=== PATIENT | female | born 1980 | race Caucasian/White ===

== ENCOUNTER 2019-11-14 09:31 | Observation (INO) ==
[2019-11-14] MEDS ORDERED: IOPAMIDOL 100 ML BOTTLE IV ONE (09:32)
[2019-11-14] MEDS ORDERED: ONDANSETRON 4 MG/2 ML VIAL IV ONE ×2 (09:55→16:00)
--- NOTE | 2019-11-14 10:00 | Emergency Department Note ---
Abdominal Pain HPI - General Chief Complaint: Abdominal Pain Stated Complaint: RLQ Abd Pain Time Seen by Provider: 11/14/19 09:48 Source: patient Mode of arrival: ambulatory Limitations: no limitations - History of Present Illness HPI Narrative: Reason for visit: Patient is a 39-year-old female that arrives complaining of right abdominal pain. She reports this pain at 8/10 sharp right upper quadrant radiates to her back and lower abdomen. Report pains increased with movement. She states that this at 11:30 PM. Denies diarrhea, constipation changes in urinary pattern. Reports she still has her gallbladder and appendix. She reports 1 episode of vomiting last night. Reports current nausea. Denies recent weakness, shortness of breath, palpations or chest pain. Patient denies currently being . Reports that her last period was last month sometime. Reports that her mother had her gallbladder removed. Reports her last food intake was at 1930 last night. - Related Data Home Medications Medication Instructions Recorded Confirmed multivitamin 1 tab PO BID tab 09/11/19 11/14/19 Allergies Allergy/AdvReac Type Severity Reaction Status Date / Time pseudoephedrine Allergy Severe anaphylaxis Verified 10/05/19 10:36 [From [facility]] Review of Systems Constitutional: Denies: fever, chills, weakness ENT ED: Denies: dysphagia Cardiovascular: Denies: chest pain, palpitations Respiratory: Denies: shortness of breath, cough Gastrointestinal: Reports: abdominal pain, nausea. Denies: vomiting (No vomiting today.), diarrhea, constipation Genitourinary: Denies: dysuria, urgency Musculoskeletal: Denies: back pain, joint pain Integumentary: Denies: rash, lesions Neurological: Denies: headache, weakness Endocrine: Denies: fatigue Hematological/Lymphatic: Denies: easy bleeding, easy bruising, lymphadenopathy Abdominal Pain PMH - Social History Smoking status: Never smoker Physical Exam Limitations: no limitations General appearance: alert Head: atraumatic, normocephalic, normal inspection Eye: Present: normal appearance, PERRL ENT: Present: normal exam, normal oropharynx Neck: Present: normal inspection, full ROM, trachea midline. Absent: tenderness, lymphadenopathy Chest: Present: normal inspection, symmetric chest wall rise Respiratory: Present: normal lung sounds bilaterally. Absent: respiratory distress Cardiovascular: Present: regular rate, normal rhythm Abdominal: Present: soft, tenderness, guarding, normal bowel sounds, Bhandari's sign. Absent: distention, rebound, rigidity, psoas sign, Rovsing's sign, tenderness at McBurney's Point Abdominal tenderness: Present: RUQ Extremities: Present: normal inspection, full ROM Back: Present: normal inspection. Absent: CVA tenderness (R), CVA tenderness (L) Neurological: Present: alert, oriented X3, CN II-XII intact Psychiatric: Present: normal affect, normal mood Skin: Present: warm, dry, intact Course Course Narrative: Differential diagnosis: Cholecystitis, Cholelithiasis, acute appendicitis, gastritis. The patient's positive Bhandari sign and presentation of acute onset initial work- up will have suspicion of gallbladder. Will order a CMP and a CBC to check for electrolyte and infection. Order lipase check for gallbladder enzymes. Patient's pain is at 8/10 with nausea. Will treat pain and nausePatient as said before has positive Bhandari sign. She also has first-generation history of her mother having her gallbladder removed. Will order a ultrasound of the gallb ladder. I evaluated patient after she has seen pain medication and had a gallbladder ultrasound. This study was negative for gall bladder disease. On reassessment found that patient's pain is now specific to McBurney's point. Eats that after pain medication her pain is no longer significant her right upper quad. Reports her pain in the right lower quadrant. She does have negative rebound te nderness. But she does have a white count. This may lead to a return of a CT to investigate the possibility of appendicitis. The result of the CT reports simple appendicitis. Dr. Chicas the surgeon has been called and states he will see the patient. Vital Signs Temperature 97.9 F 11/14/19 09:32 Pulse Rate 72 11/14/19 09:32 Respiratory Rate 18 11/14/19 09:32 Blood Pressure 125/84 11/14/19 09:32 Pulse Oximetry (%) 100 11/14/19 09:32 Temperature 97.9 F 11/14/19 09:32 Pulse Rate 63 11/14/19 12:50 Respiratory Rate 18 11/14/19 12:50 Blood Pressure 119/64 11/14/19 12:50 Pulse Oximetry (%) 96 11/14/19 12:50 Abdominal Pain - Lab Data Result diagrams: 11/14/19 10:09 11/14/19 10:09 Lab Results 11/14/19 11/14/19 11/14/19 Range/Units 10: 10: 10:20 WBC 14.3 H (4.50-11.00) K/mcL RBC 4.26 (3.59-5.38) M/mcL Hgb 13.6 (11.2-15.7) g/dL Hct 39.0 (34.1-44.9) % MCV 91.5 (80.0-100.0) fL MCH 31.9 (26.0-34.0) pg MCHC 34.9 (31.0-36.0) g/dL RDW 12.4 (11.5-14.5) % Plt Count 388 (140-440) K/mcL MPV 9.0 (7.4-10.4) fL Gran % 77.3 (38.0-78.0) % Lymph % (Auto) 15.4 L (15.5-49.0) % [facility] % (Auto) 6.5 (1.0-12.0) % Eos % (Auto) 0.4 (0.0-7.0) % Baso % (Auto) 0.4 (0.0-2.0) % Gran # 11.04 H (1.80-8.00) K/mcL Lymph # (Auto) 2.19 (1.50-4.80) K/mcL [facility] # (Auto) 0.92 H (0.10-0.90) K/mcL Eos # (Auto) 0.05 (0.00-0.70) K/mcL Baso # (Auto) 0.05 (0.00-0.30) K/mcL Sodium 141 (133-145) mmol/L Potassium 3.9 (3.3-5.1) mmol/L Chloride 107 (96-108) mmol/L Carbon Dioxide 22 (22-30) mmol/L Anion Gap 12.0 (8-16) BUN 8 (6-20) mg/dl Creatinine 0.8 (0.6-1.1) mg/dl GFR Calculation 94 Glucose 101 (70-105) mg/dL Calcium 9.9 (8.6-10.4) mg/dl Total Bilirubin 0.4 (0.0-1.0) mg/dL AST 14 (0-37) U/l ALT 9 (0-40) U/l Alkaline Phosphatase 81 (39-117) U/L Total Protein 6.9 (5.9-8.4) gm/dL Albumin 3.9 (3.2-5.2) gm/dL Globulin 3.0 (2.2-3.7) gm/dL Albumin/Globulin Ratio 1.3 (1.0-2.3) Lipase 16 (7-60) U/L Urine Color Straw Urine Appearance Clear Urine pH 8.0 (5.0-9.0) Ur Specific [place] 1.011 (1.000-1.035) Urine Protein Neg (NEG) mg/dL Urine Glucose (UA) Negative (NEG) mg/dL Urine Ketones Neg (NEG) mg/dL Urine Occult Blood Neg (<0.03) mg/dL Urine Nitrate Neg (NEG) Urine Bilirubin Neg (NEG) mg/dL Urine Urobilinogen Neg (NEG) mg/dL Ur Leukocyte Esterase Neg (NEG) /uL Ur Culture Indicated? No Disposition Pt seen by CONDITIONING YARD SUPERVISOR/PA only: No Clinical Impression: Acute appendicitis, Abdominal pain Disposition: Xfer As Outpt/Obs ([facility]) Condition: Fair Referrals: Marii Ruiz DO [Primary Care Provider] - Time of Disposition: 13:00
[2019-11-14] MEDS: HYDROmorphone 2 MG/ML VIAL IV PRN ×4 (10:47→18:04)
[2019-11-14 10:53] LABS: Basophils # (Auto) 0.05 K/mcL (0.00-0.30); Basophils % (Auto) 0.4 % (0.0-2.0); Eosinophils # (Auto) 0.05 K/mcL (0.00-0.70); Eosinophils % (Auto) 0.4 % (0.0-7.0); Granulocytes % (Auto) 77.3 % (38.0-78.0); Hemoglobin 13.6 g/dL (11.2-15.7); Lymphocytes # (Auto) 2.19 K/mcL (1.50-4.80); Lymphocytes % (Auto) 15.4 % (15.5-49.0); Mean Cell Volume 91.5 fL (80.0-100.0); Mean Corpuscular HGB Conc 34.9 g/dL (31.0-36.0); Monocytes # (Auto) 0.92 K/mcL (0.10-0.90); Monocytes % (Auto) 6.5 % (1.0-12.0); Platelet Count 388 K/mcL (140-440); RBC 4.26 M/mcL (3.59-5.38); Red Cell Distribution Width 12.4 % (11.5-14.5); WBC 14.3 K/mcL (4.50-11.00)
[2019-11-14 11:20] LABS: Appearance,Urine CLEAR; Bilirubin,Urine NEG (NEG); Color,Urine STRAW; Culture Indicated,Urine NO; Glucose,Urine (UA) NEGATIVE (NEG); Ketones,Urine NEG (NEG); Leukocyte Esterase,Urine NEG /uL (NEG); Nitrate,Urine NEG (NEG); Protein,Urine NEG (NEG); Specific Gravity,Urine 1.011 (1.000-1.035); Urine Blood NEG mg/dL (<0.03); Urobilinogen,Urine NEG (NEG)
[2019-11-14 11:21] LABS: ALT/SGPT 9 U/l (0-40); AST/SGOT 14 U/l (0-37); Albumin 3.9 gm/dL (3.2-5.2); Albumin/Globulin Ratio 1.3 (1.0-2.3); Alkaline Phosphatase 81 U/L (39-117); Bilirubin,Total 0.4 mg/dL (0.0-1.0); Blood Urea Nitrogen 8 mg/dl (6-20); Calcium 9.9 mg/dl (8.6-10.4); Carbon Dioxide 22 mmol/L (22-30); Chloride 107 mmol/L (96-108); Glomerular Filtration Rate 94; Glucose 101 mg/dL (70-105)
--- NOTE | 2019-11-14 11:43 | Ultrasound Report ---
CLINICAL INFORMATION: Right upper quadrant pain TECHNIQUE: Grayscale and color flow Doppler spectral imaging COMPARISON: None. FINDINGS: Negative gallbladder. There is no cholelithiasis. No gallbladder wall thickening. No pericholecystic fluid. No dilated bile ducts. Common bile duct measures 4.6 mm Liver is echogenic and sonographically dense. Appearances consistent with hepatic steatosis. There is a focal echogenic abnormality in the right lobe of the liver. This measures 16 x 10 x 15 mm. Probably a benign hemangioma. Six-month follow-up ultrasound is recommended. This patient has a history of primary malignancy further evaluation should be performed at this time. Spleen is not evaluated. Normal hepatopedal portal venous flow Pancreas is poorly visualized IMPRESSION: 1. Negative gallbladder. No bile duct dilatation 2. Findings consistent with hepatic steatosis 3. Probable hepatic hemangioma. Follow-up recommended Interpreted and Authenticated by: Mateus Romo 11/14/19
--- NOTE | 2019-11-14 12:12 | Cat Scan Report ---
CLINICAL INFORMATION: Abdominal pain COMPARISON: Right upper quadrant ultrasound dated 11/14/2019 TECHNIQUE: Axial images were obtained through the abdomen and pelvis. Sagittally and coronally reformatted images. 80 mL Isovue 370 injected intravenously. Oral contrast material was not administered FINDINGS: Lung bases:Negative. No parenchymal infiltrate or mass Liver:9 mm low-density lesion in the right lobe of the liver, image 49. This is probably a small hemangioma and was identified on previous ultrasound. Liver is otherwise negative. Normal smooth liver contour. Gallbladder, billary:Negative. No calcified gallstones. No gallbladder wall thickening. No dilated bile ducts Spleen:No splenomegaly. Normal enhancement splenic and portal veins Pancreas:Negative. No pancreatic mass. No peripancreatic abnormality Adrenal glands:Negative Kidneys, ureters, bladder:Negative kidneys. No solid or cystic mass. There is no hydronephrosis. No hydroureter. Urinary bladder is within normal limits. No bladder calculi Gastrointestinal:Negative colon. No diverticulosis or diverticulitis. No detectable mass. The appendix is enlarged and measures 12 mm at its tip. There is mild appendiceal enhancement and periappendiceal inflammatory change. Findings are consistent with appendicitis. There is no evidence for ruptured appendix. There is no appendicolith. No periappendiceal abscess or fluid Vascular:The abdominal aorta is normal. No abdominal aortic aneurysm. Lymphatic:No retroperitoneal or mesenteric adenopathy mildly prominent lymph nodes in the right lower quadrant Mesentery, peritoneum:No free intraperitoneal fluid. No pneumoperitoneum. There is no intra-abdominal abscess Reproductive:Uterus is present. No adnexal mass Musculoskeletal:Normal lumbar spine. Sacrum and pelvis are negative. Hips are negative. IMPRESSION: 1. Findings consistent with simple appendicitis. No evidence for perforation 2. No other abnormality The exam was performed using radiation dose optimization techniques including, but not limited to, automated exposure control, adjustment of the mA and/or kV according to patient size and use of iterative reconstruction technique. Interpreted and Authenticated by: Mateus Romo 11/14/19
[2019-11-14] MEDS ORDERED: 0.9 % SODIUM CHLORIDE 1,000 ML IV ONE (12:17)
[2019-11-14] MEDS ORDERED: ONDANSETRON 4 MG/2 ML VIAL IV PRN ×3 (12:25→19:43)
[2019-11-14] MEDS ORDERED: LACTATED RINGERS 1,000 ML IV SCH ×2 (12:30→15:45)
[2019-11-14 12:58] LABS: Prothrombin Time 13.2 sec (11.9-14.5)
[2019-11-14] MEDS: ACETAMINOPHEN 1,000 MG/100 ML BOTTLE IV SCH ×2 (13:58→19:58)
[2019-11-14] MEDS ORDERED: 0.9 % SODIUM CHLORIDE 10 ML SYRINGE IV SCH (14:00)
[2019-11-14] MEDS: PIPERACILLIN SODIUM/TAZOBACTAM 3.375 GM in DEXTROSE 5% IN WATER 50 ML IV SCH ×3 (15:05→23:50)
--- NOTE | 2019-11-14 15:07 | General Surg History&Physical ---
History of Present Illness Patient information: Note initiated : 11/14/19 at 3:06 pm Service Date, if different from initiated Date: [] Patient: Haydee Chakraborty a 39 y/o F admitted on 11/14/19 for RLQ Abd Pain. Chief Complaint: [] HPI: Ms. Chakraborty is a 39 year old F admitted with acute appendicitis. The patient h ad onset of right-sided abdominal pain about 11:30 last evening. This was followed by nausea with vomiting. She had persistent symptoms throughout the night and was finally seen in the emergency room. She denies fever or chills. She did not have any change in bowel habits. When evaluated in the emergency room. She is found to have inflammation of the distal appendix with periappendiceal tissue edema and a thickened appendiceal wall, compatible with appendicitis. White blood count is 14.3 Review of Systems All systems PM: reviewed and no additional remarkable complaints except as stated (negative except as noted above) Past History Past medical history: No chronic medical illnesses Past surgical history: Corrective surgery, right knee Past family history: Mother age 61 in good health. Father a 65 with hypertension. Other family members have diabetes mellitus, hypertension and stroke Past social history: Never smoker. Denies alcohol use Denies drug 1 child Medications and Allergies Home Medications Medication Instructions Recorded Confirmed Type multivitamin 1 tab PO BID tab 09/11/19 11/14/19 History Allergies Allergy/AdvReac Type Severity Reaction Status Date / Time pseudoephedrine Allergy Severe anaphylaxis Verified 10/05/19 10:36 [From [facility]] Exam Temp Pulse Resp BP Pulse Ox 97.9 F 63 18 119/64 96 11/14/19 13:18 11/14/19 13:18 11/14/19 13:18 11/14/19 13:18 11/14/19 13:18 - General physical appearance well developed, well nourished, moderate distress, moderate pain, obese - Eyes PERRL, normal ocular movement - ENT normal pinna, normal nares, normal mucosa, no hearing loss, no congestion - Head Head exam IM: Present: atraumatic, normocephalic - Neck no masses, no bruits, trachea midline, no lymphadenopathy, no venous distension - Cardiovascular Cardiovascular exam IM: Present: normal rate and rhythm, RRR, +S1, +S2. Absent: JVD, tachycardia - Respiratory normal expansion, normal respiratory effort, clear to auscultation - Abdomen Abdomen: Present: soft, tender (mildly obese abdomen. Tenderness in right lower quadrant with guarding; good active bowel sounds), bowel sounds, guarding Hernia: Present: none - Genitourinary Present: normal external genitalia - Integumentary Present: no rash, no growths, no abnormal pigmentation - Neurologic Present: normal coordination, normal sensation - Musculoskeletal Present: normal gait, normal posture - Psychiatric Present: oriented to time, oriented to person, oriented to place, speech is n ormal, memory intact Assessment and Plan (1) Acute appendicitis Patient is counseled for laparoscopic appendectomy and it will be performed later this. Status: Acute
[2019-11-14] MEDS ORDERED: LACTATED RINGERS 250 ML IV PRN (15:38)
[2019-11-14] MEDS ORDERED: diphenhydrAMINE 50 MG/ML VIAL IV PRN (15:38)
[2019-11-14] MEDS ORDERED: FLUMAZENIL 0.1 MG/ML ML IV PRN (15:38)
[2019-11-14] MEDS ORDERED: MEPERIDINE 25 MG/ML SYRINGE IV PRN (15:38)
[2019-11-14] MEDS ORDERED: BENZOCAINE/MENTHOL 1 LOZENGE PO PRN (15:38)
[2019-11-14] MEDS ORDERED: NALOXONE HCL 0.4 MG/ML VIAL IV PRN (15:38)
[2019-11-14] MEDS ORDERED: IPRATROPIUM/ALBUTEROL 3 ML AMPUL.NEB NEB PRN (15:38)
[2019-11-14] MEDS ORDERED: PROMETHAZINE 25 MG/ML VIAL IV PRN (15:38)
[2019-11-14] MEDS ORDERED: fentaNYL 100 MCG/2 ML VIAL IV ONE (16:00)
[2019-11-14] MEDS ORDERED: GLYCOPYRROLATE 0.2 MG/ML VIAL IV ONE (16:00)
[2019-11-14] MEDS ORDERED: PROPOFOL 200 MG/20 ML VIAL IV ONE (16:00)
[2019-11-14] MEDS ORDERED: LIDOCAINE HCL/PF 100 MG/5 ML SYRINGE IV ONE (16:00)
[2019-11-14] MEDS ORDERED: SUGAMMADEX SODIUM 200 MG/2 ML VIAL IV ONE (16:00)
[2019-11-14] MEDS ORDERED: KETAMINE 100 MG/ML ML IV ONE (16:00)
[2019-11-14] MEDS ORDERED: ROCURONIUM 10 MG/ML ML IV ONE (16:00)
[2019-11-14] MEDS ORDERED: DEXAMETHASONE 10 MG/ML VIAL IV ONE (16:00)
--- NOTE | 2019-11-14 16:53 | Brief Operative Note ---
Date of procedure: 11/14/19 Pre-op diagnosis: ACUTE APPENDICITIS Post-op diagnosis: other (ACUTE APPENDICITIS) Procedure: LAPAROSCOPIC APPENDECTOMY Grafts/Implants: No Anesthesia: GETA Findings: ACUTE SUPPURATIVE APPENDICITIS Complications: none Surgeon: Bowen Chicas Estimated blood loss (cc): 10 Specimens Removed/Pathology: other (APPENDIX) Condition: stable Disposition: PACU
[2019-11-14] MEDS: fentaNYL 100 MCG/2 ML VIAL IV PRN ×2 (17:25→17:31)
[2019-11-14] MEDS: LACTATED RINGERS 1,000 ML IV SCH (18:40)
[2019-11-14] MEDS ORDERED: HYDROmorphone 2 MG/ML VIAL ONE (20:28)
[2019-11-14] MEDS: 0.9 % SODIUM CHLORIDE 10 ML SYRINGE IV SCH (22:14)
[2019-11-15] MEDS: HYDROmorphone 2 MG/ML VIAL IV PRN ×3 (00:33→09:48)
[2019-11-15] MEDS: ACETAMINOPHEN 1,000 MG/100 ML BOTTLE IV SCH ×2 (00:36→06:42)
[2019-11-15] MEDS: 0.9 % SODIUM CHLORIDE 10 ML SYRINGE IV SCH ×2 (04:37→14:41)
[2019-11-15] MEDS: LACTATED RINGERS 1,000 ML IV SCH ×2 (04:37→14:00)
[2019-11-15] MEDS: PIPERACILLIN SODIUM/TAZOBACTAM 3.375 GM in DEXTROSE 5% IN WATER 50 ML IV SCH ×2 (06:07→12:05)
[2019-11-15 06:17] LABS: Basophils # (Auto) 0.02 K/mcL (0.00-0.30); Basophils % (Auto) 0.2 % (0.0-2.0); Eosinophils # (Auto) 0 K/mcL (0.00-0.70); Eosinophils % (Auto) 0 % (0.0-7.0); Granulocytes % (Auto) 82.3 % (38.0-78.0); Hematocrit 36.2 % (34.1-44.9); Hemoglobin 12.5 g/dL (11.2-15.7); Lymphocytes # (Auto) 1.29 K/mcL (1.50-4.80); Lymphocytes % (Auto) 12.7 % (15.5-49.0); Mean Cell Volume 91.9 fL (80.0-100.0); Mean Corpuscular HGB Conc 34.5 g/dL (31.0-36.0); Monocytes # (Auto) 0.49 K/mcL (0.10-0.90); Monocytes % (Auto) 4.8 % (1.0-12.0); Platelet Count 369 K/mcL (140-440); RBC 3.94 M/mcL (3.59-5.38); Red Cell Distribution Width 12.2 % (11.5-14.5); WBC 10.1 K/mcL (4.50-11.00)
--- NOTE | 2019-11-15 13:21 | Discharge Summary ---
Providers - Providers Patient information: Note initiated : 11/15/19 at 1:19 pm Service Date, if different from initiated Date: [] Patient: Haydee Chakraborty 39 y/o F admitted on 11/14/19 for RLQ Abd Pain. Chief Complaint: [] Date of admission: 11/14/19 Discharge date: 11/15/19 Attending physician: Bowen Chicas Hospitalization Hospital Course: 39-year-old female who presented with about a 36 hour history of right lower quadrant pain. She was seen in the emergency room where evaluation revealed acute appendicitis. She underwent laparoscopic appendectomy yesterday. She was found to have acute suppurative appendicitis and underwent laparoscopic appendectomy. She has done well in the postoperative period. Her white count is 10.1, hemoglobin 12.5, hematocrit 36.2. Patient is clinically stable and is ready for discharge home Discharge diagnosis: acute appendicitis Secondary discharge diagnosis: None Reason for admission: right lower quadrant pain with nausea, vomiting Procedures: Laparoscopic appendectomy Pertinent studies/significant findings: CT of abdomen and pelvis with contrast Complications: None Exam Temp Pulse Resp BP Pulse Ox 97.3 F 61 18 104/64 94 11/15/19 12:00 11/15/19 12:00 11/15/19 12:00 11/15/19 12:00 11/15/19 12:00 - General physical appearance well developed, well nourished, no distress - Eyes PERRL, normal ocular movement - ENT normal pinna, normal nares, normal mucosa, no hearing loss, no congestion - Head Head exam IM: Present: atraumatic, normocephalic - Neck no masses, no bruits, trachea midline, no lymphadenopathy, no venous distension - Cardiovascular Cardiovascular exam IM: Present: normal rate and rhythm - Respiratory normal expansion, normal respiratory effort, clear to percussion, clear to auscultation - Abdomen Abdomen: Present: soft, tender (mild incisional tenderness), bowel sounds (; good active bowel sounds), surgical scars (. Incision port sites look unremarkable) Hernia: Present: none - Genitourinary Present: normal external genitalia - Rectum Rectum: Present: normal sphincter tone, no hemorrhoids, no tenderness, no masses, no bleeding - Integumentary Present: no rash, no growths, no abnormal pigmentation - Neurologic Present: normal coordination, normal sensation - Musculoskeletal Present: normal gait, normal posture - Psychiatric Present: oriented to time, oriented to person, oriented to place, speech is normal, memory intact Discharge Plan - Patient/Caregiver Discharge Instructions Activity: increase activity as tolerated Diet: Regular Diet Additional Instructions: Advance diet as tolerated. MiraLAX once or twice daily for constipation. Patient will be out of work for 2 weeks. . Given work release to cover him to work from through 18 November with plans to return to Work on November 23 Prescriptions: HYDROcodone/APAP 10/325MG [[place] 10-325Mg] 1 tab PO Q4H PRN #30 tab PRN Reason: Pain Transmission Status: Sent to [facility] 2005 Promethazine [Phenergan] 25 mg PO Q4HP PRN #20 tab MDD 4 PRN Reason: Nausea And Vomiting Transmission Status: Pending to [facility] - Follow up Plan Follow up with: Marii Ruiz DO [Primary Care Provider] - Disposition: Home, Self-Care Prognosis: Good Rehab Potential: Good I certify that the patient requires SNF services.: No Overall status at discharge: patient is progressing back to baseline Pending Studies Resuscitation Status Full Code Diet Full Liquid Diet Start WedNov 14 1940 Hydromorphone HCl (Dilaudid) 0.5 mg IV Q2HP PRN; Protocol PRN Reason: Per Pain Protocol Last Admin: 11/15/19 09:48 Dose: 0.5 mg Documented by: Admin: 11/15/19 06:00 Dose: 0.5 mg Documented by: Admin: 11/15/19 00:33 Dose: 0.5 mg Documented by: LIBORIO Lactated Ringer's (Lactated Ringers) 1,000 mls @ 125 mls/hr IV .Q8H [facility] Last Admin: 11/15/19 04:37 Dose: 125 mls/hr Documented by: Infusion: 11/15/19 02:40 Dose: 125 mls/hr Documented by: Admin: 11/14/19 18:40 Dose: 125 mls/hr Documented by: LIBORIO Piperacillin Sod/Tazobactam (Sod 3.375 gm/ Dextrose) 50 mls @ 100 mls/hr IV Q6H [facility]; Protocol Last Admin: 11/15/19 12:05 Dose: 100 mls/hr Documented by: Infusion: 11/15/19 06:40 Dose: 0 mls/hr Documented by: Admin: 11/15/19 06:07 Dose: 100 mls/hr Documented by: Infusion: 11/15/19 00:20 Dose: 100 mls/hr Documented by: Admin: 11/14/19 23:50 Dose: 100 mls/hr Documented by: LIBORIO Sodium Chloride (Saline Flush) 10 ml IV Q8 [facility]AIDA Last Admin: 11/15/19 04:37 Dose: Not Given Documented by: Admin: 11/14/19 22:14 Dose: Not Given Documented by: LIBORIO Shift Summary 11/15/19 04:25 Shift Summary by Jeri Dempsey Came to ED yesterday after severe pain, nausea, vomiting for about a day. Returned from surgery just at shift change. Has been on 2L d/t sats dropping while sleeping. Up w/SBA to BR, voiding well. Abd dressings x3 w/scant drainage. Has had dilaudid twice for abd pain. Has been taking in ice chips & water w/o nausea. Does know she can have up to a full liquid, but has been sleeping & not wanting more yet. Initialized on 11/15/19 04:25 - END OF NOTE
--- NOTE | 2019-11-16 13:34 | Surgical Pathology Report ---
HISTOLOGY SPECIMEN MICROSCOPIC DIAGNOSIS APPENDIX, APPENDECTOMY: -- ACUTE APPENDICITIS WITH TRANSMURAL INFLAMMATION AND ACUTE PERITONITIS. (ACP:sln) CLINICAL HISTORY Acute appendicitis. GROSS DESCRIPTION Received in formalin labeled appendix, is a 9.5 cm long by up to 0.9 cm i diameter purple-alcaraz appendix with 2.7 cm of attached yellow-vazquez adipose tissue. The margin is stapled closed. The lumen contains soft red-brown material. Grossly no perforations are identified. Syrup Shed Supervisor sections submitted - one cassette. (STS:sln) Electronically Signed by: Figueroa Tang M.D.
--- NOTE | 2019-11-21 15:19 | Operative Note ---
DATE OF OPERATION: 11/14/2019 PREOPERATIVE DIAGNOSIS: Acute appendicitis. POSTOPERATIVE DIAGNOSIS: Acute appendicitis. PROCEDURE: Laparoscopic appendectomy. SURGEON: Bowen Chicas M.D. FINDINGS: Acute suppurative appendicitis. DESCRIPTION OF PROCEDURE: Under general anesthesia, the patient's abdomen was prepped and draped in a sterile field. A time-out procedure was carried out as per protocol. A supraumbilical incision was made and Veress needle was inserted uneventfully. Abdomen was insufflated with 2.7 liters of CO2. A 12 mm port was placed uneventfully. A laparoscope was placed. Under videoscopic guidance, a 12 mm port was placed in the left lower quadrant and a 5 mm port in the suprapubic midline. Graspers were placed. The patient was placed in deep Trendelenburg position and rotated to the left. The appendix was found in the right gutter. It was grasped at the base. A window was made in the mesoappendix at the base of the appendix, and the base of the appendix as well as the mesoappendix was transected using the JOSIAS stapler. The appendix was placed in an Endopouch and retrieved. There was no bleeding from the staple line. Irrigation in the pelvis was unremarkable. CO2 was allowed to escape from the abdomen, and the ports were removed. Fascia at the umbilicus was closed with 0 Vicryl. Skin incisions were closed with gudelia. Tegaderm dressings were placed. The patient tolerated the procedure well. She was awakened and transferred to a bed and taken to the postanesthetic care unit in stable, satisfactory condition. LCS:adri Job ID: [id number] Doc ID: [id number] Bowen Chicas M.D.
== END 2019-11-15 14:40 | disposition home or self-care (01) ==
LOC: MEDSUR 09:31 → ED 09:31 → MEDSUR 13:08
PROVIDERS: ADMIT Family Medicine Adult Medicine; ATTEND Family Medicine Adult Medicine